=== PATIENT | female | born 1965 | race Caucasian/White ===

== ENCOUNTER 2019-12-16 09:50 | Day surgery (SDC) | payer MEDICARE ==
[2019-12-16] MEDS ORDERED: Xylocaine 1% Vial 30 ML PF IJ ONE (09:51)
[2019-12-16] MEDS ORDERED: Marcaine 0.5% SDV 10 ML IJ ONE (09:51)
[2019-12-16 11:28] LABS: INR 1.07 (0.8-3.0); PROTIME 12.1 SECONDS (9.95-12.35)
[2019-12-16] MEDS ORDERED: DIPRIVAN 200 MG/20 ML IV ONE (11:47)
[2019-12-16] MEDS ORDERED: Ketamine HCl 50 MG/ML ONE (11:47)
--- NOTE | 2019-12-16 14:02 | XRAY ---
Indication: Left lumbar sympathetic nerve block. Intraoperative fluoroscopy was provided for 48 seconds. 3 digital spot images submitted for interpretation demonstrates left posterior needle tip projecting just anterior to I believe the L3 segment. Small amount of contrast injected for needle tip placement. Correlate with intraoperative findings/report.
--- NOTE | 2019-12-16 14:11 | XRAY ---
48 seconds fluoroscopy time in surgery for left lumbar sympathetic nerve block.
[2019-12-16] MEDS ORDERED: Lactated Ringers 1,000 ML IV ONE (14:32)
== END 2019-12-16 12:25 | disposition home or self-care (01) ==
LOC: SDC-PAIN 09:50
PROVIDERS: ATTEND Psychiatry & Neurology Pain Medicine
DX: G90.522 Complex regional pain syndrome I of left lower limb (principal); E11.9 Type 2 diabetes mellitus without complications; I10 Essential (primary) hypertension; J44.9 Chronic obstructive pulmonary disease, unspecified; Z79.01 Long term (current) use of anticoagulants; Z79.899 Other long term (current) drug therapy
CPT/HCPCS: 36415; 64520; 72100; 77002; 82962; 85610; J2001; J2704; Q9966

== ENCOUNTER 2020-01-27 08:36 | Day surgery (SDC) | payer MEDICARE ==
[2020-01-27] MEDS ORDERED: Xylocaine 1% Vial 30 ML PF IJ ONE (08:37)
[2020-01-27] MEDS ORDERED: Sensorcaine 0.25% 10 ML IJ ONE (08:37)
[2020-01-27 09:09] LABS: INR 1.04 (0.8-3.0); PROTIME 11.8 SECONDS (9.95-12.35)
[2020-01-27] MEDS ORDERED: Ketamine HCl 50 MG/ML ONE (09:32)
[2020-01-27] MEDS ORDERED: DIPRIVAN 200 MG/20 ML IV ONE (09:32)
--- NOTE | 2020-01-27 11:02 | XRAY ---
Indication: Left lumbar sympathetic nerve block. Intraoperative fluoroscopy was provided for 45 seconds. 4 digital spot images submitted for interpretation demonstrates left posterior needle tip projecting just anterior to I believe the L2 segment. Small amount of contrast injected for needle tip placement. Correlate with intraoperative findings/report.
--- NOTE | 2020-01-27 11:52 | XRAY ---
45 seconds fluoroscopy time in surgery for left lumbar sympathetic nerve block.
[2020-01-27] MEDS ORDERED: Lactated Ringers 1,000 ML IV ONE (14:53)
== END 2020-01-27 10:03 | disposition home or self-care (01) ==
LOC: SDC-PAIN 08:36
PROVIDERS: ATTEND Psychiatry & Neurology Pain Medicine
DX: G90.522 Complex regional pain syndrome I of left lower limb (principal); E11.9 Type 2 diabetes mellitus without complications; I10 Essential (primary) hypertension; J44.9 Chronic obstructive pulmonary disease, unspecified; Z79.899 Other long term (current) drug therapy; Z79.01 Long term (current) use of anticoagulants
CPT/HCPCS: 36415; 64520; 72100; 77002; 82962; 85610; J2001; J2704; Q9966

== ENCOUNTER 2020-02-24 09:56 | Day surgery (SDC) | payer MEDICARE ==
[2020-02-24] MEDS ORDERED: LIDOCAINE HCL 2% 100 MG/5 ML IJ ONE (09:57)
[2020-02-24] MEDS ORDERED: Depo-Medrol 40 MG/ML IM ONE (09:57)
[2020-02-24 10:35] LABS: INR 1.06 (0.8-3.0)
[2020-02-24] MEDS ORDERED: DIPRIVAN 200 MG/20 ML IV ONE (11:07)
[2020-02-24] MEDS ORDERED: Ketamine HCl 50 MG/ML ONE (11:07)
[2020-02-24] MEDS ORDERED: Lactated Ringers 1,000 ML IV ONE (13:52)
--- NOTE | 2020-02-27 18:00 | XRAY ---
Indication: Bilateral L3-S1 MBB. Intraoperative fluoroscopy was provided for19 seconds. A single digital PA spot image demonstrates posterior spinal needle tips projected over the expected course of the left and right L3-S1 nerve roots. Correlate with intraoperative findings/report.
--- NOTE | 2020-02-29 07:45 | XRAY ---
19 seconds fluoroscopy time in surgery for bilateral L3-S1 MBB.
== END 2020-02-24 11:46 | disposition home or self-care (01) ==
LOC: SDC-PAIN 09:56
PROVIDERS: ATTEND Psychiatry & Neurology Pain Medicine
DX: M47.816 Spondylosis without myelopathy or radiculopathy, lumbar region (principal); E11.9 Type 2 diabetes mellitus without complications; I10 Essential (primary) hypertension; J44.9 Chronic obstructive pulmonary disease, unspecified; R60.0 Localized edema; H40.9 Unspecified glaucoma; Z79.899 Other long term (current) drug therapy
CPT/HCPCS: 36415; 64493; 64494; 64495; 72020; 77002; 82962; 84703; 85610; J1030; J2704

== ENCOUNTER 2020-05-18 08:08 | Day surgery (SDC) | payer MEDICARE ==
[~2020-05-18 08:08] MED LIST: DIPRIVAN 200 MG/20 ML IV ONE; Ketamine HCl 50 MG/ML ONE
[2020-05-18] MEDS ORDERED: BUPIVACAINE 0.5% VIAL IJ ONE (08:09)
[2020-05-18] MEDS ORDERED: Xylocaine 1% Vial 30 ML PF IJ ONE (08:09)
[2020-05-18] MEDS ORDERED: Depo-Medrol 40 MG/ML IM ONE (08:09)
[2020-05-18 08:51] LABS: INR 1.07 (0.8-3.0); PROTIME 12.1 SECONDS (9.95-12.35)
--- NOTE | 2020-05-18 10:57 | XRAY ---
Indication: Left L3-S1 RFA. Intraoperative fluoroscopy was provided for 22 seconds. 3 digital spot images submitted for interpretation demonstrates posterior needle tips projecting over the expected left L3-S1 nerve roots. Correlate with intraoperative findings/report.
--- NOTE | 2020-05-18 10:59 | XRAY ---
22 seconds fluoroscopy time in surgery for left L3-S1 RFA.
[2020-05-18] MEDS ORDERED: Lactated Ringers 1,000 ML IV ONE (15:56)
== END 2020-05-18 09:55 | disposition home or self-care (01) ==
LOC: SDC-PAIN 08:08
PROVIDERS: ATTEND Psychiatry & Neurology Pain Medicine
DX: M47.816 Spondylosis without myelopathy or radiculopathy, lumbar region (principal); J44.9 Chronic obstructive pulmonary disease, unspecified; I10 Essential (primary) hypertension; E11.9 Type 2 diabetes mellitus without complications; H40.9 Unspecified glaucoma; Z79.899 Other long term (current) drug therapy; Z79.01 Long term (current) use of anticoagulants
CPT/HCPCS: 36415; 64635; 64636; 72100; 77002; 82962; 85610; J1030; J2001; J2704

== ENCOUNTER 2020-06-22 08:12 | Day surgery (SDC) | payer MEDICARE, SELFPAY ==
[2020-06-22] MEDS ORDERED: Xylocaine 1% Vial 30 ML PF IJ ONE (08:13)
[2020-06-22] MEDS ORDERED: BUPIVACAINE 0.5% VIAL IJ ONE (08:13)
[2020-06-22] MEDS ORDERED: Depo-Medrol 40 MG/ML IM ONE (08:13)
[2020-06-22 09:01] LABS: INR 1.11 (0.8-3.0); PROTIME 12.5 SECONDS (9.95-12.35)
[2020-06-22] MEDS ORDERED: Ketamine HCl 50 MG/ML ONE (09:35)
[2020-06-22] MEDS ORDERED: DIPRIVAN 200 MG/20 ML IV ONE (09:35)
[2020-06-22] MEDS ORDERED: Lactated Ringers 1,000 ML IV ONE ×2 (09:36→15:41)
--- NOTE | 2020-06-22 11:12 | XRAY ---
Indication: Right L3-S1 RFA. Intraoperative fluoroscopy was provided for 45 seconds. 3 digital spot images submitted for interpretation demonstrates posterior needle tips projecting over the expected right L3-S1 nerve roots. Correlate with intraoperative findings/report.
--- NOTE | 2020-06-22 11:19 | XRAY ---
45 seconds fluoroscopy time in surgery for right L3-S1 RFA.
== END 2020-06-22 10:12 | disposition home or self-care (01) ==
LOC: SDC-PAIN 08:12
PROVIDERS: ATTEND Psychiatry & Neurology Pain Medicine
DX: M47.816 Spondylosis without myelopathy or radiculopathy, lumbar region (principal); E11.9 Type 2 diabetes mellitus without complications; Z79.01 Long term (current) use of anticoagulants; Z79.899 Other long term (current) drug therapy; J44.9 Chronic obstructive pulmonary disease, unspecified; I10 Essential (primary) hypertension; R60.9 Edema, unspecified
CPT/HCPCS: 36415; 64635; 64636; 72100; 77002; 82947; 82962; 84703; 85610; J1030; J2001; J2704

== ENCOUNTER 2020-11-16 16:18 | Day surgery (SDC) | payer MEDICARE ==
[2020-11-16] MEDS ORDERED: Xylocaine 1% Vial 30 ML PF IJ ONE (16:19)
[2020-11-16] MEDS ORDERED: Depo-Medrol 40 MG/ML IM ONE (16:19)
[2020-11-16] MEDS ORDERED: Sodium Chloride 0.9(Preservative Free) 10 ML IJ ONE (16:19)
[2020-11-16 16:35] LABS: INR 1.14 (0.8-3.0); PROTIME 12.9 SECONDS (9.95-12.35)
--- NOTE | 2020-11-17 08:33 | XRAY ---
Indication: Left L4-S1 transforaminal ANITA. Intraoperative fluoroscopy provided for 40 seconds. 2 digital spot images submitted for interpretation demonstrates posterior needle tips projecting over the expected left L4 and L5 nerve roots. Small amount of contrast injected for needle tip placement. Correlate with intraoperative findings/report.
--- NOTE | 2020-11-17 08:38 | XRAY ---
40 seconds fluoroscopy time in surgery for left L4-S1 transforaminal ANITA.
== END 2020-11-16 17:46 | disposition home or self-care (01) ==
LOC: SDC-PAIN 16:18
PROVIDERS: ATTEND Psychiatry & Neurology Pain Medicine
DX: M54.16 Radiculopathy, lumbar region (principal); E11.9 Type 2 diabetes mellitus without complications; I10 Essential (primary) hypertension; J44.9 Chronic obstructive pulmonary disease, unspecified; R60.9 Edema, unspecified; H40.9 Unspecified glaucoma; Z79.899 Other long term (current) drug therapy; Z79.01 Long term (current) use of anticoagulants
CPT/HCPCS: 36415; 64483; 64484; 72100; 77003; 82947; 85610; J1030; J2001; Q9966

== ENCOUNTER 2022-04-11 09:06 | Day surgery (SDC) | payer MEDICARE ==
[2022-04-11] MEDS ORDERED: DIPRIVAN 200 MG/20 ML IV ONE (11:05)
== END 2022-04-11 09:50 ==
LOC: SDC-PAIN 09:06
PROVIDERS: ATTEND Psychiatry & Neurology Pain Medicine
DX: Z53.8 Procedure and treatment not carried out for other reasons (principal); E11.9 Type 2 diabetes mellitus without complications
CPT/HCPCS: 82947; J2704

== ENCOUNTER 2022-05-02 09:42 | Day surgery (SDC) | payer MEDICARE ==
[2022-05-02] MEDS ORDERED: Depo-Medrol 40 MG/ML IM ONE (09:43)
[2022-05-02] MEDS ORDERED: Sodium Chloride 0.9(Preservative Free) 10 ML IJ ONE (09:43)
[2022-05-02] MEDS ORDERED: DIPRIVAN 200 MG/20 ML IV ONE (11:06)
[2022-05-02] MEDS ORDERED: Lactated Ringers 1,000 ML IV ONE (11:19)
--- NOTE | 2022-05-02 19:22 | XRAY ---
Indication: Left L4-S1 transforaminal ANITA. Intraoperative fluoroscopy provided for 55 seconds. 6 digital spot image submitted for interpretation demonstrates posterior needle tips projecting over the expected left L4 and L5 nerve roots. Small amount of contrast injected for needle tip placement. Correlate with intraoperative findings/report.
--- NOTE | 2022-05-02 19:34 | XRAY ---
55 seconds of fluoroscopy was used in surgery for a left L4-S1 transforaminal ANITA.
== END 2022-05-02 12:05 | disposition home or self-care (01) ==
LOC: SDC-PAIN 09:42
PROVIDERS: ATTEND Psychiatry & Neurology Pain Medicine
DX: M54.16 Radiculopathy, lumbar region (principal); E11.9 Type 2 diabetes mellitus without complications; Z79.899 Other long term (current) drug therapy
CPT/HCPCS: 64483; 64484; 72100; 77003; 82947; J1030; J2704; Q9966

== ENCOUNTER 2022-11-21 09:27 | Day surgery (SDC) | payer MEDICARE ==
[2022-11-21] MEDS ORDERED: BUPIVACAINE 0.5% VIAL IJ ONE (09:28)
[2022-11-21] MEDS ORDERED: Depo-Medrol 40 MG/ML IM ONE (09:28)
[2022-11-21] MEDS ORDERED: DIPRIVAN 200 MG/20 ML IV ONE (10:46)
--- NOTE | 2022-11-21 11:51 | XRAY ---
Indication: Right knee injection. Intraoperative fluoroscopy provided 9 seconds. Single digital spot image submitted for interpretation demonstrates needle tip projecting over the right femur intracondylar notch. Small amount of contrast injected for needle tip placement roots. Correlate with intraoperative findings/report.
--- NOTE | 2022-11-21 11:52 | XRAY ---
Indication: Left knee injection. Intraoperative fluoroscopy provided 6 seconds. Single digital spot image submitted for interpretation demonstrates needle tip projecting over the left femur intracondylar notch. Small amount of contrast injected for needle tip placement roots. Correlate with intraoperative findings/report.
[2022-11-21] MEDS ORDERED: Lactated Ringers 1,000 ML IV ONE (12:45)
--- NOTE | 2022-11-21 15:12 | XRAY ---
9 seconds of fluoroscopy was used in surgery for a right intra-articular knee.
--- NOTE | 2022-11-21 15:12 | XRAY ---
6 seconds of fluoroscopy was used in surgery for a left intra-articular knee injection.
== END 2022-11-21 11:25 | disposition home or self-care (01) ==
LOC: SDC-PAIN 09:27
PROVIDERS: ATTEND Psychiatry & Neurology Pain Medicine
DX: M17.0 Bilateral primary osteoarthritis of knee (principal); E11.9 Type 2 diabetes mellitus without complications; Z79.899 Other long term (current) drug therapy
CPT/HCPCS: 20610; 73560; 77002; 82947; J1030; J2704; Q9966

== ENCOUNTER 2023-07-04 09:50 | Day surgery (SDC) | payer MEDICARE ==
[2023-07-04] MEDS ORDERED: Depo-Medrol 40 MG/ML IM ONE (09:51)
[2023-07-04] MEDS ORDERED: BUPIVACAINE 0.5% VIAL IJ ONE (09:51)
[2023-07-04] MEDS ORDERED: DIPRIVAN 200 MG/20 ML IV ONE (11:07)
[2023-07-04] MEDS ORDERED: MORPHINE SULFATE 2 MG INJ ONE (11:32)
--- NOTE | 2023-07-04 12:35 | XRAY ---
Indication: Left shoulder and subacromial bursa injection. Intraoperative fluoroscopy provided for 11 seconds. 3 digital spot image submitted for interpretation demonstrates needle tip projecting over left glenohumeral joint superiorly. Second needle tip subacromial. Small amount of contrast injected for needle placement. Correlate with intraoperative findings/report.
[2023-07-04] MEDS ORDERED: Lactated Ringers 1,000 ML IV ONE (15:23)
--- NOTE | 2023-07-05 10:59 | XRAY ---
11 seconds of fluoroscopy was used in surgery for a left intra-artictular and subacrominal bursa shoulder injection.
== END 2023-07-04 11:51 | disposition home or self-care (01) ==
LOC: SDC-PAIN 09:50
PROVIDERS: ATTEND Psychiatry & Neurology Pain Medicine
DX: M75.52 Bursitis of left shoulder (principal); M19.012 Primary osteoarthritis, left shoulder; E11.9 Type 2 diabetes mellitus without complications
CPT/HCPCS: 20610; 73030; 77002; 82947; J1030; J2270; J2704; Q9966

== ENCOUNTER 2023-07-24 09:04 | Day surgery (SDC) | payer MEDICARE ==
[2023-07-24] MEDS ORDERED: Depo-Medrol 40 MG/ML IM ONE (09:05)
[2023-07-24] MEDS ORDERED: BUPIVACAINE 0.5% VIAL IJ ONE (09:05)
[2023-07-24] MEDS ORDERED: XYLOCAINE-MPF 1% 5ML SDV IJ ONE (09:05)
[2023-07-24] MEDS ORDERED: DIPRIVAN 200 MG/20 ML IV ONE (10:28)
[2023-07-24] MEDS ORDERED: Lactated Ringers 1,000 ML IV ONE (11:18)
--- NOTE | 2023-07-24 12:15 | XRAY ---
Indication: Left L4-S1 RFA. Intraoperative fluoroscopy provided for 13 seconds. 3 digital spot image submitted for interpretation demonstrates posterior needle tips projecting over expected left L4-S1 nerve roots. Correlate with intraoperative findings/report.
--- NOTE | 2023-07-24 16:56 | XRAY ---
13 seconds of fluoroscopy was used in surgery for a left L4-S1 RFA.
== END 2023-07-24 11:00 | disposition home or self-care (01) ==
LOC: SDC-PAIN 09:04
PROVIDERS: ATTEND Psychiatry & Neurology Pain Medicine
DX: M47.817 Spondylosis without myelopathy or radiculopathy, lumbosacral region (principal); E11.9 Type 2 diabetes mellitus without complications; Z79.899 Other long term (current) drug therapy
CPT/HCPCS: 64635; 64636; 72100; 77002; 82947; J1030; J2704

== ENCOUNTER 2023-08-21 09:02 | Day surgery (SDC) | payer MEDICARE ==
[2023-08-21] MEDS ORDERED: XYLOCAINE-MPF 1% 5ML SDV IJ ONE (09:03)
[2023-08-21] MEDS ORDERED: BUPIVACAINE 0.5% VIAL IJ ONE (09:03)
[2023-08-21] MEDS ORDERED: Depo-Medrol 40 MG/ML IM ONE (09:03)
[2023-08-21] MEDS ORDERED: DIPRIVAN 200 MG/20 ML IV ONE (11:34)
--- NOTE | 2023-08-21 12:46 | XRAY ---
Indication: Right L4-S1 RFA. Intraoperative fluoroscopy provided for 19 seconds. 4 digital spot images submitted for interpretation demonstrates posterior needle tips projecting over the expected right L4-S1 nerve roots. Correlate with intraoperative findings/report.
--- NOTE | 2023-08-21 13:24 | XRAY ---
19 seconds of fluoroscopy was used in surgery for a right L4-S1 RFA.
[2023-08-21] MEDS ORDERED: Lactated Ringers 1,000 ML IV ONE (14:03)
== END 2023-08-21 12:03 | disposition home or self-care (01) ==
LOC: SDC-PAIN 09:02
PROVIDERS: ATTEND Psychiatry & Neurology Pain Medicine
DX: M47.816 Spondylosis without myelopathy or radiculopathy, lumbar region (principal); E11.9 Type 2 diabetes mellitus without complications; Z79.899 Other long term (current) drug therapy
CPT/HCPCS: 64635; 64636; 72100; 77002; 82947; J1030; J2704